=== PATIENT | female | born 1995 | race Caucasian/White ===

== ENCOUNTER → 2021-12-29 11:09 | Outpatient (CLI) | payer OTHER, SELFPAY | PROVIDERS: Referring Provider Internal Medicine; Visit Provider Internal Medicine | DX: Z23 Encounter for immunization (principal) | CPT/HCPCS: 90471; 90686 ==

== ENCOUNTER → 2022-09-08 09:51 | Outpatient (CLI) | payer OTHER, SELFPAY ==
[2022-09-09 09:15] LABS: Varicella IgG Antibody 417 index (Immune >165)
[2022-09-12 17:06] LABS: Hepatitis Be Antibody Negative (Negative); QuantiFERON Mitogen Value >10.00 IU/mL (.); QuantiFERON Nil Value 0.03 IU/mL (.); QuantiFERON TB Gold Plus Negative (Negative); QuantiFERON TB1 Ag Value 0.08 IU/mL (.); QuantiFERON TB2 Ag Value 0.05 IU/mL (.)
== END ==
PROVIDERS: PCP Nurse Practitioner Family; Referring Provider Surgery; Visit Provider Surgery
DX: Z20.828 Contact with and (suspected) exposure to other viral communicable diseases (principal)
CPT/HCPCS: 36415; 86480; 86707; 86787